=== PATIENT | male | born 1945 | race Caucasian/White ===

== ENCOUNTER → 2020-04-12 | Day surgery (SDC) | payer MEDICARE, OTHER ==
[2020-04-07 11:26] LABS: BASOPHILS % 0.7 % (0.0-1.0); EOSINOPHILS # (AUTO) 0.2 (0.0-0.4); EOSINOPHILS % 5.1 % (0.0-6.0); HEMATOCRIT 39.6 % (38.2-49.6); HEMOGLOBIN 13.4 g/dL (14.0-18.0); LYMPHOCYTES # (AUTO) 1.2 (1.0-3.2); MEAN CORPUSCULAR HEMOGLOBIN 31.5 pg (28-32); MEAN CORPUSCULAR HGB CONC 33.8 g/dL (31-35); MEAN CORPUSCULAR VOLUME 93.2 fL (81-99); MONOCYTES # (AUTO) 0.5 (0.2-0.8); MONOCYTES % 11.8 % (4.4-11.3); NEUTROPHILS # (AUTO) 2.2 (2.1-6.9); NEUTROPHILS % 52.9 % (38.7-80.0); PLATELET COUNT 243 x10e3/uL (140-360); RED BLOOD COUNT 4.25 x10e6/uL (4.3-5.7); RED CELL DISTRIBUTION WIDTH 12.8 % (11.7-14.4)
--- NOTE | 2020-04-07 12:44 | Diagnostic Imaging Report ---
EXAM: CHEST 2 VIEWS DATE: 04/07/2020 12:10 PM INDICATION: Preoperative evaluation COMPARISON: None FINDINGS: The trachea is midline. The lungs are symmetrically expanded without evidence for large focal consolidation, pneumothorax, or significant pleural effusion. The cardiomediastinal silhouette and pulmonary vasculature are within normal limits. Atherosclerotic calcifications noted within the aortic arch. Plate and screw fixation hardware noted within the lateral left clavicle. No acute osseous abnormality is identified. The surrounding soft tissues are unremarkable. IMPRESSION: No acute cardiopulmonary process identified. Signed by: Dr. Atul Caceres MD on 04/07/2020 12:41 PM
[~2020-04-12] MED LIST: ASPIRIN81 MG; BUPIVACAINE HCL 0.5% INJ 30 ML VIAL INJ ONE; CEFAZOLIN SOD 1 GM/NS 50ML 50 ML IV ONE; DEXAMETHASONE SOD PHOS INJ 4 MG/ML VIAL ONE; EPHEDRINE SULFATE INJ 50 MG/ML VIAL ONE; FENTANYL CITRATE/PF 100MCG/2 ML INJ ONE; FLOMAX0.4 MG PO; GEMFIBROZIL600 MG; LIDOCAINE HCL 2% LOCAL INJ 5 ML SDV VIAL INJ ONE; LOVASTATIN20 MG; MIDAZOLAM HCL 2 MG/2 ML VIAL ONE; MULTI-VITAMIN1 EACH; OMEPRAZOLE40 MG; ONDANSETRON HCL INJ 2MG/ML 2ML 2 MG/ML VIAL ONE; PROPOFOL IV EMULSION 10 MG/ML 20 ML VIAL ONE; SEVOFLURANE INHAL SOLN 250 ML PEN BTL ONE; SINGULAIR10 MG PO; TOPROL XL25 MG PO; UROCIT-K10 MEQ
[2020-04-12 09:10] VITALS: BP 129/90
--- NOTE | 2020-04-12 10:39 | Operative Report ---
DATE OF PROCEDURE: 04/12/2020 SURGEON: Mila Zhu DPM PREOPERATIVE DIAGNOSIS: Right anterior talofibular ligament rupture. POSTOPERATIVE DIAGNOSIS: Right anterior talofibular ligament rupture. PLANNED PROCEDURE: Brostrom lateral ankle reconstruction. SURGEON: Zuhair Campbell DPM ([place]). BUILDING SERVICES SUPERVISOR: Mila Zhu DPM. ANESTHESIA: General with a postoperative block consisting of 15 mL of 0.5% Marcaine plain mixed with 1 mL of dexamethasone phosphate. HEMOSTASIS: Pneumatic thigh tourniquet set at 350 mmHg for a total time of approximately 30 minutes. ESTIMATED BLOOD LOSS: Less than 10 mL. PATHOLOGY: None. MATERIALS: G2 bone anchor, 0 Ethibond, 3-0 Vicryl, 4-0 Vicryl, 4-0 nylon. PROCEDURE IN DETAIL: The patient was seen in the preoperative waiting room, where the correct procedure and site were identified. The patient was brought into the operating room and placed on the operating table in supine position. General anesthesia was initiated. At this time, a well-padded pneumatic tourniquet was placed about the patient's right thigh. The right foot, ankle, and leg were then scrubbed, prepped, and draped in the usual aseptic manner. The right foot, ankle, and leg were then exsanguinated with an Esmarch bandage and the pneumatic thigh tourniquet was inflated to 350 mmHg for a total time of approximately 30 minutes. Attention was directed to the anterolateral aspect of the patient's right ankle, where an inverted J-incision was placed over the lateral aspect of the ankle, extending from the anterior fibula down to the inferior aspect of the fibula. The incision was secured to the subcutaneous tissue them from deep or underling structures. All vital and neurovascular structures were identified, retracted medially and laterally. All bleeders were cauterized or ligated as deemed necessary. At this time, the lateral ankle capsule was entered and there was noted to be an attenuated anterior talofibular ligament with the anterolateral capsule. Upon incision, a moderate amount of fluid was drained from the anterolateral ankle. The fibular component of the anterior talofibular ligament was reflected off the distal aspect of the fibula. The wound was then copiously irrigated with sterile saline. Next, per manufacture protocol, 1 size G2 bone anchor was placed in the distal aspect of the fibula. The two suture ends were sutured into the distal aspect of the anterior talofibular ligament while holding the foot in a dorsiflexed and everted position. The anterior talofibular ligament was repaired. Utilizing 0 Ethibond, the Gómez modification of the Brostrom procedure was performed utilizing a [id number] suture with 0 Ethibond. The ankle joint is stable. The wound was then copiously irrigated again with sterile saline. Deep tissue was reapproximated with 3-0 Vicryl, subcutaneous tissue with 3-0 Vicryl. The skin was closed using simple interrupted sutures of 4-0 nylon. The incision was dressed with Adaptic, 4 x 4s, Kerlix, 4-inch Webril, 4 x 30 posterior splint, 4-inch Iker wrap, and a 6-inch Iker wrap. The patient tolerated the procedure and anesthesia well. The patient was transferred to the postoperative recovery room with vital signs stable and vascular status intact. The patient was monitored there for a short period time before being sent home with the following written and oral instructions: 1. Keep the dressing clean, dry, and intact. 2. The patient has remained nonweightbearing in a posterior splint to avoid any ambulation until being seen in the office. 3. The patient was given office number and instructed to contact us if any problems arise. Dictated by Mila Zhu DPM S J[facility]ano ([place])/MODL /[id number]
== END | disposition home or self-care (01) ==
LOC: OR 05:30
PROVIDERS: ATTEND Podiatrist Foot & Ankle Surgery
DX: S93.491A Sprain of other ligament of right ankle, initial encounter (principal); G47.33 Obstructive sleep apnea (adult) (pediatric); K21.9 Gastro-esophageal reflux disease without esophagitis; I48.91 Unspecified atrial fibrillation; I25.10 Atherosclerotic heart disease of native coronary artery without angina pectoris; I10 Essential (primary) hypertension; N20.0 Calculus of kidney; X58.XXXA Exposure to other specified factors, initial encounter; Z01.810 Encounter for preprocedural cardiovascular examination; Z01.812 Encounter for preprocedural laboratory examination; Z01.818 Encounter for other preprocedural examination; Z11.59 Encounter for screening for other viral diseases; Z79.82 Long term (current) use of aspirin
CPT/HCPCS: 36415; 71046; 85025; 93005; C1713; J0690; J1100; J2001; J2250; J2405; J3010; U0002